=== PATIENT | female | born 2005 | race Hispanic/Latino ===

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

== ENCOUNTER → 2025-03-31 | Outpatient (REF) | payer OTHER ==
[~2025-03-31] MED LIST changes: -ARIP1TAB43 PO; +ARIP20TA51 PO; +FLUO-290 PO; +FLUO-365 PO; -FLUO10CA18 PO; -FLUO20CA22 PO; -LORA2TA PO; +LORA2TAB15 PO; +MELA10TA30 PO; +ONDA-282 PO; -ONDA4TAB6 PO; -RA M10TA PO; +SENN-225; -SENO8.6T5; -SUCR1ORA2; +SUCR1ORA20
[2025-03-31 20:23] LABS: CHLORIDE,RANDOM URINE 276.0 MMOL/L; POTASSIUM RANDOM URINE 68.0 MMOL/L
== END ==
LOC: M LAB REF 17:04
PROVIDERS: ATTEND Student in an Organized Health Care Education/Training Program
DX: E87.6 Hypokalemia (principal)